=== PATIENT | male | born 1995 | race African-American/Black ===

== ENCOUNTER 2019-01-18 19:35 | Emergency (ER) | payer BC ==
[~2019-01-18] VITALS: Ht 175.3 cm; Wt 77.3 kg
[2019-01-18 19:42] VITALS: TEMP 98.7
[2019-01-18] MEDS ORDERED: XANAX 0.5MG0.5 MG PO (19:54)
[2019-01-18 20:30] LABS: STREP SCREEN NEGATIVE
[2019-01-18 21:03] LABS: BASO % 0.2 % (0.0-2.0); EOS # 0.1 (0.0-0.7); EOS % 0.7 % (0-4.0); GRAN # 11.1 (1.4-6.5); GRAN % 72.2 % (42.2-75.2); HEMATOCRIT 46.5 % (42.0-52.0); HEMOGLOBIN 14.9 g/dl (13.5-18.0); LYMPH # 2.6 (1.2-3.4); LYMPH % 17.1 % (20.0-51.0); MEAN CELL VOLUME 84 fl (80.0-100.0); MEAN CORPUSCULAR HEMOGLOBIN 27 pg (27.0-31.0); MEAN CORPUSCULAR HGB CONC 32 g/dl (33.0-37.0); MEAN PLATELET VOLUME 8.7 fl (7.4-10.4); MONO # 1.4 (0.1-0.6); MONO % 9.3 % (1.7-9.3); PLATELET COUNT 346 K/mm3 (130-400); RED BLOOD COUNT 5.51 M/mm3 (4.20-5.60)
[2019-01-18 21:11] LABS: ALBUMIN 4.8 gm/dL (3.5-5.0); BILIRUBIN,TOTAL 0.5 mg/dL (0.0-1.0); CALCIUM 9.9 mg/dL (8.4-10.2); CREATININE, serum 1.17 (0.66-1.25); POTASSIUM 3.9 mmol/L (3.4-5.0); TOTAL PROTEIN 8.3 gm/dL (6.4-8.2)
[2019-01-18] MEDS ORDERED: CLEOCIN HCL300 MG PO (21:24)
[2019-01-18] MEDS ORDERED: ULTRAM 50MG TAB50 MG PO (21:25)
[2019-01-18 21:49] VITALS: BP 114/87; PULSE 89
== END 2019-01-18 22:11 | disposition home or self-care (01) ==
LOC: COL.ER 19:35
PROVIDERS: Nurse Practitioner
DX: J03.90 Acute tonsillitis, unspecified (principal); F41.9 Anxiety disorder, unspecified; F17.210 Nicotine dependence, cigarettes, uncomplicated
CPT/HCPCS: J1885; J2930; J7030

== ENCOUNTER → 2019-03-19 | Outpatient (REF) ==
[~2019-03-19] MED LIST: CLEOCIN HCL300 MG PO; ULTRAM 50MG TAB50 MG PO; XANAX 0.5MG0.5 MG PO
== END ==
LOC: COL.LAB 19:16
DX: Z01.89 Encounter for other specified special examinations (principal)